=== PATIENT | female | born 1995 | race Caucasian/White ===

== ENCOUNTER 2020-04-10 23:35 | Emergency (ER) | payer OTHER, SELFPAY ==
[2020-04-10 23:38] VITALS: TEMP 35.9; BMI 26.4
[2020-04-10 23:44] VITALS: BP 94/76; PULSE 68; RESP 17; O2SAT 96
[2020-04-11] MEDS: 0.9% Normal Saline 1,000 ML 999 ML IV
[2020-04-11] MEDS: Ondansetron 4 MG/2 ML Vial IV (00:35)
[2020-04-11 02:00] VITALS: BP 93/56; PULSE 67; RESP 14; O2SAT 100
--- NOTE | 2020-04-11 03:01 | ED.VIS.GEN ---
History of Present Illness Chief Complaint: ETOH Intox Informant: [employer] Onset: Today Context: Gradual Onset Timing: Continuous Quality: lethargy Location: generalized Current Severity: Severe Maximum Severity: Severe Worsened by: n/a Relieved by: n/a Associated Symptoms: n/v Narrative: Patient was at a wedding, drinking alcohol including shots of liquor. At some point she apparently started getting lethargic and then started vomiting and then had significant depressed level of consciousness so EMS was called. History is limited due to the patient's lethargy. According to nearby family/friends, there was no sudden collapse or anything that happened very suddenly. It sounds like the alcohol caught up with her and she did not know she was drinking as much as she did. She is a fairly small 24-year-old healthy female. Past Medical History - Allergies and Home Meds Allergies/Adverse Reactions: Allergies No Known Allergies Allergy (Verified 04/10/20 23:41) Primary Care Physician: NOT,DEFINED [NON-STAFF] - Doctor,Your [STAFF PHYSICIAN] - As Needed Past Medical History: None Lives: With Family Smoking Status: Unknown if ever smoked Review of Systems ROS: Unable to Obtain - Although patient admitted she was still nauseated Cardiovascular: Denies: Chest pain Respiratory: Denies: Dyspnea Gastrointestinal: Reports: Nausea, Vomiting. Denies: Abdominal pain Musculoskeletal: Denies: Neck pain, Back pain, Extremity Pain Physical Exam Vital Signs/Narrative: Vital Signs Temp Pulse Resp BP Pulse Ox 04/11/20 02:00 67 14 93/56 L 100 04/10/20 23:44 68 17 94/76 96 04/10/20 23:38 96.7 F L General: Well nourished, Well developed, No Acute Distress Head: Normocephalic, Atraumatic Eyes: Perrl - Not able to evaluate extraocular movements or nystagmus, patient having a hard time holding her eyes open although she tries. ENT: Moist mucous membranes, No rhinorrhea Neck: Supple, Nontender Cardiovascular: Regular rate, Regular rhythm, No murmurs Respiratory: No distress, CTA bilaterally, Chest nontender Abdomen: Soft, Nontender, Nondistended, Normal bowel sounds Back: Nontender, Normal Inspection. Negative for: CVA tenderness Extremities: Nontender, No edema Skin: Normal color, No rash, No Trauma Neurological: Cranial nerves II-XII grossly intact, Normal Strength, Normal Sensation, Lethargic - Grossly intoxicated. Responds to voice, follows some commands, attempts to open eyes with verbal command, saying words. Psychological: Normal affect, Normal Mood Diagnostic/Tx/Re-eval Laboratory Tests 04/11/20 Range/Units 00:30 Ethyl Alcohol 258.0 mg/dL - Medical Decision Making Patient was monitored for 3-1/2 hours. She slept mostly. We kept her monitored, she did not develop any dyspnea or hypoxemia, 100% on room air. Family drove down from [place]. They prefer to take her home given that it is 3 AM. Plan is to get her out of ED bed and if alert enough to stand, I am fine with family taking her home and getting her to bed. Staff got patient up, she was able to stand and walk without any apparent difficulty, keenly alert. Discharged home with family. ED Disposition - Plan for ED Patient: Disposition: Home or Assisted Living Diagnosis: Alcohol intoxication Instructions: ED INTOXICATION Alcohol Prescriptions: Ondansetron [Zofran Odt] 8 mg PO Q8H PRN PRN #10 tab PRN Reason: Nausea Prescription Printed Referrals: NOT,DEFINED [NON-STAFF] - Doctor,Your [STAFF PHYSICIAN] - As Needed Additional Instructions: Drink plenty of fluids this coming day
[2020-04-11 03:27] VITALS: RESP 16
== END 2020-04-11 03:27 | disposition home or self-care (01) ==
PROVIDERS: Emergency Provider Emergency Medicine
DX: F10.129 Alcohol abuse with intoxication, unspecified (principal); Y90.9 Presence of alcohol in blood, level not specified
CPT/HCPCS: 80320; 96361; 96374; 99285; J7030; A4216; G0480; J2405